=== PATIENT | female | born 1990 | race Caucasian/White ===

== ENCOUNTER 2023-02-13 20:44 | Inpatient (IN) | payer SELFPAY ==
[2023-02-13] MEDS ORDERED: Tranexamic Acid 1,000 MG in Sodium Chloride 0.9% 100 ML IV PRN (21:08)
[2023-02-13] MEDS ORDERED: Sodium Chloride 0.9% 2.5 ML Syringe FLUSH PRN (21:08)
[2023-02-13] MEDS ORDERED: Water For Irrigation,Sterile 1,000 ML Container IRR PRN (21:08)
[2023-02-13] MEDS ORDERED: Sodium Chloride 0.9% 20 ML SDV IV PRN (21:08)
[2023-02-13] MEDS ORDERED: Lidocaine 1% 50 ML MDV INJECT PRN (21:08)
[2023-02-13] MEDS ORDERED: Methylergonovine 0.2 MG/1 ML Amp IM PRN (21:08)
[2023-02-13] MEDS ORDERED: Butorphanol 1 MG/ML SDV IVPUSH PRN (21:08)
[2023-02-13] MEDS ORDERED: Sodium Chloride 0.9% 10 ML Syringe FLUSH PRN (21:08)
[2023-02-13] MEDS ORDERED: Carboprost Tromethamine 250 MCG/1 mL Vial IM PRN (21:08)
[2023-02-13] MEDS ORDERED: Misoprostol 200 MCG Tab PO PRN (21:08)
[2023-02-13] MEDS ORDERED: Oxytocin/0.9 % Sodium Chloride 30 UNIT/500 ML BAG IV SCH (21:15)
[2023-02-13 21:19] LABS: HEMATOCRIT 40.2 % (36.0-46.0); HEMOGLOBIN 13.7 g/dL (12.0-16.0); MEAN CORPUSCULAR HEMOGLOBIN 32.1 pg (27.0-32.0); MEAN CORPUSCULAR HGB CONC 34.1 g/dL (31.0-37.0); MEAN CORPUSCULAR VOLUME 94.1 fL (80.0-98.0); MEAN PLATELET VOLUME 10.8 fL (7.40-12.00); RED BLOOD CELL COUNT 4.27 M/uL (4.30-5.90); WHITE BLOOD CELL COUNT,WBC 10.71 K/uL (4.0-11.0)
[2023-02-13] MEDS ORDERED: Nalbuphine HCl 10 MG/ 1ML Amp IVPUSH PRN (22:27)
[2023-02-13] MEDS: Lactated Ringers 1,000 ML IV SCH (23:45)
[2023-02-14] MEDS ORDERED: ceFAZolin 1 GM Vial ONE (00:20)
[2023-02-14] MEDS ORDERED: Water For Injection, Sterile 20 ML ONE (00:20)
[2023-02-14] MEDS ORDERED: fentaNYL 100 MCG/2 ML SDV ONE (00:21)
[2023-02-14] MEDS ORDERED: Bupivacaine 0.25% 10 ML SDV ONE (00:22)
[2023-02-14] MEDS ORDERED: Phenylephrine HCl 0.5 MG/5 ML AMP IVPUSH PRN (00:40)
[2023-02-14] MEDS ORDERED: ePHEDrine 50 MG/ML SDV IVPUSH PRN ×2 (00:40)
[2023-02-14] MEDS ORDERED: Ropivacaine HCl/PF 400 MG in Premix Bag 1 BAG EPIDUR SCH (00:45)
[2023-02-14] MEDS: Lactated Ringers 1,000 ML IV SCH (00:45)
[2023-02-14] MEDS ORDERED: Acetaminophen 500 MG Tab PO PRN (01:34)
[2023-02-14] MEDS ORDERED: Methylergonovine 0.2 MG/1 ML Amp IM PRN (01:34)
[2023-02-14] MEDS ORDERED: Ibuprofen 400 MG Tab PO PRN (01:34)
[2023-02-14] MEDS ORDERED: Docusate Sodium 100 MG Cap PO PRN (01:34)
[2023-02-14] MEDS ORDERED: Tranexamic Acid 1,000 MG in Sodium Chloride 0.9% 100 ML IV PRN (01:34)
[2023-02-14] MEDS ORDERED: Witch Hazel Medicated Pads 40/Jar TOP PRN (01:34)
[2023-02-14] MEDS ORDERED: Lanolin 100% Cream 7 GM Tube TOP PRN (01:34)
[2023-02-14] MEDS ORDERED: Benzocaine/Menthol 20%-0.5% Spray 78 GM Cannister TOP PRN (01:34)
[2023-02-14] MEDS ORDERED: Bisacodyl 10 MG Supp RECTAL PRN (01:34)
[2023-02-14 01:59] LABS: PH,UMBILICAL ARTERIAL 7.3 (7.18-7.38); PH,UMBILICAL VENOUS 7.32 (7.25-7.45)
[2023-02-14] MEDS ORDERED: Naloxone 0.4 MG/ML SDV IVPUSH ONE (03:01)
[2023-02-14] MEDS ORDERED: diphenhydrAMINE 50 MG/ML SDV IVPUSH ONE (03:02)
[2023-02-14] MEDS: Acetaminophen 500 MG Tab PO PRN ×3 (03:42→20:22)
[2023-02-14] MEDS: Ibuprofen 800 MG Tab PO PRN ×3 (03:43→18:33)
[2023-02-14] MEDS: Docusate Sodium 100 MG Cap PO SCH ×2 (08:37→20:22)
[2023-02-15] MEDS: Ibuprofen 800 MG Tab PO PRN (02:07)
[2023-02-15] MEDS: Acetaminophen 500 MG Tab PO PRN ×2 (02:51→12:57)
[2023-02-15] MEDS ORDERED: oxyCODONE 5 MG Tab PO PRN (03:38)
[2023-02-15 05:26] LABS: HEMATOCRIT 33.4 % (36.0-46.0); HEMOGLOBIN 11.1 g/dL (12.0-16.0)
[2023-02-15] MEDS: Docusate Sodium 100 MG Cap PO SCH (08:31)
== END 2023-02-15 16:45 | disposition home or self-care (01) | DRG 807 ==
LOC: MW.OB 20:44 → MW.OBCHECK 20:44 → MW.OB 21:40 → OBSVTOIN 02-14 01:17 → MW.OB 02-14 04:14
PROVIDERS: ADMIT Obstetrics & Gynecology; ATTEND Obstetrics & Gynecology
PROC: 10E0XZZ Delivery of Products of Conception, External Approach (ICD-10-PCS; principal; 2023-02-14)
PROC: 3E033VJ Introduction of Other Hormone into Peripheral Vein, Percutaneous Approach (ICD-10-PCS; 2023-02-14)
PROC: 00HU33Z Insertion of Infusion Device into Spinal Canal, Percutaneous Approach (ICD-10-PCS; 2023-02-14)
PROC: 3E0R3BZ Introduction of Anesthetic Agent into Spinal Canal, Percutaneous Approach (ICD-10-PCS; 2023-02-14)
DX: O90.89 Other complications of the puerperium, not elsewhere classified (principal); Z37.0 Single live birth; M54.9 Dorsalgia, unspecified; Z3A.38 38 weeks gestation of pregnancy; Z98.890 Other specified postprocedural states
CPT/HCPCS: 36415; 59025; 59409; 62322; 82803; 85014; 85018; 85027; 86592; 86850; 86900; 86901; A9270-GY; J0690; J1200; J2300; J2310; J2590; J3010; J3490; J7120